=== PATIENT | female | born 1960 | race Caucasian/White ===

== ENCOUNTER 2021-06-19 11:54 | Emergency (ER) | payer MEDICAID ==
[~2021-06-19] VITALS: Ht 165.1 cm; Wt 128.4 kg
[2021-06-19 12:02] VITALS: BP 165/91
[2021-06-19] MEDS ORDERED: KETOROLAC 15 MG/ML VIAL IM ONE (13:20)
[2021-06-19] MEDS ORDERED: ACET-9527 PO (13:48)
--- NOTE | 2021-06-19 15:02 | NUR ---
Patient discharged with v/s stable. Written and verbal after care instructions given and explained. Patient alert, oriented and verbalized understanding of instructions. Wheel Chair Assisted with steady gait. All questions addressed prior to discharge. ID band removed. Patient advised to follow up with PMD. Rx of NORCO given. Patient educated on indication of medication including possible reaction and side effects. Opportunity to ask questions provided and answered.
== END 2021-06-19 15:02 | disposition home or self-care (01) ==
LOC: MED 11:54
DX: M25.561 Pain in right knee (principal); I10 Essential (primary) hypertension; E78.5 Hyperlipidemia, unspecified; Z86.39 Personal history of other endocrine, nutritional and metabolic disease; Z96.653 Presence of artificial knee joint, bilateral; Z79.891 Long term (current) use of opiate analgesic
CPT/HCPCS: 73562; 96372; 99283; J1885; Q0092

== ENCOUNTER 2021-11-23 17:36 | Inpatient (IN) | payer MEDICAID ==
[~2021-11-23] VITALS: Ht 165.1 cm; Wt 140.6 kg
[2021-11-23 17:36] VITALS: BP 148/82
[~2021-11-23 17:36] MED LIST: ACET-9527 PO
--- NOTE | 2021-11-23 17:36 | NUR ---
DR JENKINS EVALUATING PT AT THIS TIME
--- NOTE | 2021-11-23 17:36 | NUR ---
MANE ALS TO ER BED 3
[2021-11-23] MEDS ORDERED: MORPHINE SULFATE 4 MG/ML SYR IVP ONE ×2 (17:45→20:15)
--- NOTE | 2021-11-23 18:19 | NUR ---
Radioloigy at [facility]
--- NOTE | 2021-11-23 18:50 | NUR ---
61 y/o female biba for c/o right shoulder pain x today. Patient states she was transferring form one wheelchair to another and she tripped over the foot rest. Patient fell and landed on shoulder. Patient is noted with a bump and bruising to right eyebrow. Patient also has a laceration to her right inner nose. Patient has difficulty moving her right arm. Patients pain is 7/10. Patient has +sensation, + movement, + feeling. Denies LOC Medical History: HTN, HDL, DM, BIPOLAR, LEFT ARM WEAKNESS ALLERGIES:MORPHINE
--- NOTE | 2021-11-23 18:58 | NUR ---
[facility]
--- NOTE | 2021-11-23 19:10 | NUR ---
Patient returned from imaging
--- NOTE | 2021-11-23 19:25 | NUR ---
Patient report given to NATALIIA Bo. Transfer of care at this time.
--- NOTE | 2021-11-23 19:52 | NUR ---
PATIENT C/O RIGHT SHOULDER PAIN 02/01. MADE AWARE.
[2021-11-23] MEDS ORDERED: ONDANSETRON 4 MG/2 ML VIAL IVP ONE (20:15)
[2021-11-23 20:41] LABS: BASOPHILS % (AUTO) 0.4 % (0.0-2.0); EOSINOPHILS # (AUTO) 0.3 K/uL (0-0.4); EOSINOPHILS % (AUTO) 2.9 % (0.0-4.0); HEMATOCRIT 34.9 % (36-48); HEMOGLOBIN 11.1 g/dL (12.0-16.0); LYMPHOCYTES # (AUTO) 1.8 K/uL (2.5-16.5); LYMPHOCYTES % (AUTO) 15.1 % (20.5-51.1); MEAN CORPUSCULAR HEMOGLOBIN 29 pg (27-31); MEAN CORPUSCULAR HGB CONC 32 g/dL (33-37); MEAN CORPUSCULAR VOLUME 92.3 fL (80-94); MONOCYTES # (AUTO) 0.8 K/uL (0.8-1.0); NEUTROPHILS # (AUTO) 8.7 K/uL (1.8-7.7); NEUTROPHILS % (AUTO) 74.6 % (42.2-75.2); PLATELET COUNT (AUTO) 215 K/uL (140-450); RED BLOOD CELL COUNT(AUTO) 3.79 MIL/uL (4.20-5.40); RED CELL DISTRIBUTION WIDTH 13.9 % (11.6-13.7); WHITE BLOOD COUNT (AUTO) 11.6 K/uL (4.8-10.8)
--- NOTE | 2021-11-23 20:44 | NUR ---
ATTEMPTED TO CALL DAUGHTER ANDREZ BACK [phone], TO UPDATE ON PATIENT STATUS WITH NO SUCCESS X2
[2021-11-23 20:47] LABS: ANION GAP 13.6 (8-16); CARBON DIOXIDE 28.7 mmol/L (21-32); POTASSIUM 4.3 mmol/L (3.5-5.1)
[2021-11-23 20:53] LABS: ALBUMIN 3.1 g/dL (3.4-5.0); TOTAL BILIRUBIN 0.2 mg/dL (0.0-1.0)
[2021-11-23] MEDS ORDERED: ZOLPIDEM 5 MG TAB PO PRN (21:10)
[2021-11-23] MEDS ORDERED: ACETAMINOPHEN 325 MG TAB PO PRN (21:10)
[2021-11-23] MEDS ORDERED: DOCUSATE SODIUM 100 MG GELCAP PO PRN (21:10)
[2021-11-23] MEDS ORDERED: ONDANSETRON 4 MG/2 ML VIAL IM/IVP PRN (21:10)
[2021-11-23] MEDS ORDERED: POTASSIUM CHLORIDE 10 MEQ TABER PO PRN (21:10)
[2021-11-23] MEDS ORDERED: guaiFENesin DM 200/20 MG-10 ML 10 ML UDC PO PRN (21:10)
--- NOTE | 2021-11-23 21:45 | NUR ---
PATIETN UNABLE TO URINATE AT THIS TIME.
[2021-11-23 21:51] LABS: MAGNESIUM 1.8 mg/dL (1.8-2.4); PHOSPHORUS 4.1 mg/dL (2.5-4.9)
--- NOTE | 2021-11-23 22:07 | NUR ---
SPOKE TO PATIENTS DAUGHTER NIKKY AND GAVE UPDATE ON PATIENT STATUS
--- NOTE | 2021-11-23 22:10 | NUR ---
REPORT GIVEN TO BRUNO VILLEGAS. TRANSFER OF CARE.
--- NOTE | 2021-11-23 22:30 | NUR ---
Note mick in ED - 11/24/21 at 0047 by MARIANNE Patient will be admitted to care of SHOULDER PAIN. Admited to SURG. Will go to room 125A. Belongings list completed. Report to BRUNO VILLEGAS.
--- NOTE | 2021-11-23 22:30 | NUR ---
Patient will be admitted to care of MD LISA . Admited to SURG. Will go to room 125A. Belongings list completed. Report to BRUNO VILLEGAS.
--- NOTE | 2021-11-23 23:45 | NUR ---
PATIENT ARRIVED ON UNIT VIA GURNEY FROM ER. RECEIVED REPORT FROM ER NURSE LUCILLE. PATIENT IS DX WITH RIGHT SHOULDER PAIN. PATIENT IS A&O X4. IV SITE IS 22G IN LEFT THUMB. NO FLUIDS RUNNING. PATIENT WAS GIVEN MORPHINE IN ER @ 2038 FOR PAIN. SKIN IS INTACT. VITALS WERE: BP 156/63, HR 61, TEMP 97.5, RR 60, O2 92%. PATIENT DOES HAVE BRUISE ABOVE RIGHT EYE. BED IS IN LOWEST POSITION, WHEELS LOCKED, CALL LIGHT IN PLACE. WILL CONTINUE TO OBSERVE.
--- NOTE | 2021-11-24 03:00 | NUR ---
PATIENT STATED THAT MORPHINE DID NOT HELP WITH PAIN, WHICH IS A 9/10, AND WANTED DOCTOR TO PRESCRIBE SOMETHING STRONGER (REQUESTED DILAUDID). MESSAGED DOCTOR GABO. PENDING RESPONSE.
[2021-11-24] MEDS: HYDROcodone/APAP 10/325 MG 1 TAB TAB PO PRN (03:32)
--- NOTE | 2021-11-24 03:32 | NUR ---
GAVE PATIENT NORCO FOR 9/10 PAIN. PATIENT TOLERATED WELL. WILL CONTINUE TO OBSERVE.
[2021-11-24 04:00] VITALS: BP 149/56
--- NOTE | 2021-11-24 05:00 | NUR ---
PATIENT VOIDED AND NEEDED TO BE CHANGED. PATIENT DECLINED BEING ROLLED DUE TO PAIN. BIOMEDICAL SCIENTISTLizett ELDER AND RNS ALEXIS, MICHAEL, AND BAKARI ASSISTED IN LIFTING PATIENT. PATIENT WAS CLEANED AND CHANGED. PATIENT REQUESTED DILAUDID AGAIN AND WAS INFORMED THAT DOCTOR HAS NOT RESPONDED AND THERE WAS CURRENTLY NO ORDER FOR THE MEDICATION. WILL CONTINUE TO OBSERVE.
[2021-11-24 05:26] LABS: BASOPHILS % (AUTO) 0.3 % (0.0-2.0); EOSINOPHILS # (AUTO) 0.2 K/uL (0-0.4); EOSINOPHILS % (AUTO) 3.3 % (0.0-4.0); HEMATOCRIT 33.3 % (36-48); HEMOGLOBIN 10.8 g/dL (12.0-16.0); LYMPHOCYTES # (AUTO) 1.8 K/uL (2.5-16.5); LYMPHOCYTES % (AUTO) 26.5 % (20.5-51.1); MEAN CORPUSCULAR HEMOGLOBIN 30 pg (27-31); MEAN CORPUSCULAR HGB CONC 33 g/dL (33-37); MONOCYTES # (AUTO) 0.8 K/uL (0.8-1.0); MONOCYTES % (AUTO) 12.1 % (1.7-9.3); NEUTROPHILS # (AUTO) 3.9 K/uL (1.8-7.7); NEUTROPHILS % (AUTO) 57.8 % (42.2-75.2); PLATELET COUNT (AUTO) 192 K/uL (140-450); RED BLOOD CELL COUNT(AUTO) 3.62 MIL/uL (4.20-5.40); RED CELL DISTRIBUTION WIDTH 13.9 % (11.6-13.7); WHITE BLOOD COUNT (AUTO) 6.7 K/uL (4.8-10.8)
[2021-11-24 06:14] LABS: ANION GAP 8.8 (8-16); CARBON DIOXIDE 29.5 mmol/L (21-32); CREATININE 0.8 mg/dL (0.6-1.3); POTASSIUM 4.3 mmol/L (3.5-5.1)
--- NOTE | 2021-11-24 07:30 | NUR ---
ENDORSED CONTINUITY OF CARE TO DAY SHIFT. PATIENT IS STABLE.
--- NOTE | 2021-11-24 07:50 | NUR ---
RECEIVED REPORT FROM INSULATION BOARD CALENDER OPERATOR NURSE FOR CONTINUITY OF CARE. PATIENT ASLEEP NO DISTRESS NOTED. PATIENT RESPIRATION EVEN AND NOT LABORED NO SHORTNESS OF BREATH ON ROOM AIR. IV SITE ON RIGHT THUMB DOMINIC 22 SALINE LOCK. ALL SAFETY MEASURE IN PLACE.
[2021-11-24 08:00] VITALS: BP 140/61
[2021-11-24] MEDS: PANTOPRAZOLE 40 MG TABEC PO SCH (08:57)
--- NOTE | 2021-11-24 08:59 | NUR ---
WHEN I ENTER PATIENT ROM SHE ASLEEP SOUNDLY AND WHEN I CALL HER NAME FIRST THING SHE SAID HURT. GIVEN PROTONIX ORDER. DR. AYON AT BED SIDE THIS TIME.
[2021-11-24] MEDS: HYDROcodone/APAP 5/325 MG 1 TAB TAB PO PRN ×3 (09:09→19:20)
--- NOTE | 2021-11-24 09:10 | NUR ---
MEDICATED FOR PAIN AND SPOON FED BY PADDED PRODUCTS FINISHER.
--- NOTE | 2021-11-24 09:37 | NUR ---
PATIENT HAS BEEN SCREENED AND CATEGORIZED LOW NUTRITION RISK. PATIENT WILL BE SEEN WITHIN 7 DAYS OF ADMISSION. 11/30/[address]
--- NOTE | 2021-11-24 12:00 | NUR ---
PATIENT ALERT REQUESTED TO BE FEED BY PAINT MAKER STATING SHE CAN'T MOVE HER HAND AND ARM BUT PATIENT ABLE TO HOLD AND PUT ON HER EARS TO TALK.
--- NOTE | 2021-11-24 14:28 | NUR ---
PATIENT NOTED WITH REDNESS ON ABDOMINAL FOLD AND GROIN AREA LEFT MESSAGE TO DR. AYON. SORT SUPERVISOR CLEANED PATIENT.
--- NOTE | 2021-11-24 14:30 | NUR ---
PT EVALUATED PATIENT AND SHE IS MAX ASSIST. ALSO COMPLAIN OF PAIN.
[2021-11-24 16:00] VITALS: BP 138/65
[2021-11-24 18:50] LABS: APPEARANCE,URINE SL CLOUDY (CLEAR); BILIRUBIN,URINE NEGATIVE (NEGATIVE); BLOOD, URINE 1+ (NEGATIVE); COLOR,URINE AMBER (YELLOW); LEUKOCYTE ESTERASE ,URINE 3+ (NEGATIVE); NITRITE, URINE POSITIVE (NEGATIVE); UGLUCOSE NEGATIVE (NEGATIVE)
[2021-11-24 19:02] LABS: BARBITURATE, URINE NEGATIVE ng/ml (NEG <=200); BENZODIAZEPINE, URINE NEGATIVE ng/mL (NEG <=200); CANNABINOID, URINE NEGATIVE ng/mL (NEG <=50); COCAINE, URINE NEGATIVE ng/mL (NEG <=300); OPIATE, URINE POSITIVE ng/mL (NEG <=2000); PHENCYCLIDINE SCREEN,URINE NEGATIVE ng/mL (NEG <=25)
[2021-11-24 19:06] LABS: OTHER CASTS, URINE None Seen /LPF (None Seen)
--- NOTE | 2021-11-24 19:20 | NUR ---
PATIENT AWAKE GAVE BED SIDE REPORT TO NAIL PROFESSIONAL NURSE FOR CONTINUITY OF CARE. PATIENT COMPLAIN OF RIGHT SHOULDER PAIN NAIL PROFESSIONAL NURSE WILL GIVE PAIN MEDICATION.
[2021-11-24 20:00] VITALS: BP 136/98
--- NOTE | 2021-11-24 22:00 | NUR ---
INCONTINENT OF URINE, PERINEAL CARE DONE. PUREWICK USED. PULLED UP AND MADE COMFORTABLE IN BED.
[2021-11-24] MEDS: traZODone 50 MG TAB PO SCH (22:45)
--- NOTE | 2021-11-25 00:07 | NUR ---
PATIENT ASLEEP. NO S/SX OF PAIN NOR DISCOMFORT. CALL LIGHT WITHIN REACH.
[2021-11-25 04:00] VITALS: BP 139/55
--- NOTE | 2021-11-25 04:15 | NUR ---
AM CARE RENDERED, PUREWICK CHANGED. GOWN AND LINENS CHANGED. PULLED UP AND POSITIONED FOR COMFORT. CALL LIGHT IN REACH.
[2021-11-25] MEDS: LEVOTHYROXINE 0.112 MG TAB PO SCH (05:34)
[2021-11-25 06:07] LABS: BASOPHILS % (AUTO) 0.2 % (0.0-2.0); EOSINOPHILS # (AUTO) 0.3 K/uL (0-0.4); EOSINOPHILS % (AUTO) 4.3 % (0.0-4.0); HEMATOCRIT 36.5 % (36-48); HEMOGLOBIN 11.8 g/dL (12.0-16.0); LYMPHOCYTES # (AUTO) 1.9 K/uL (2.5-16.5); LYMPHOCYTES % (AUTO) 32.2 % (20.5-51.1); MEAN CORPUSCULAR HEMOGLOBIN 30 pg (27-31); MEAN CORPUSCULAR HGB CONC 32 g/dL (33-37); MEAN CORPUSCULAR VOLUME 92.5 fL (80-94); MONOCYTES # (AUTO) 0.9 K/uL (0.8-1.0); MONOCYTES % (AUTO) 14.2 % (1.7-9.3); NEUTROPHILS % (AUTO) 49.1 % (42.2-75.2); PLATELET COUNT (AUTO) 182 K/uL (140-450); RED BLOOD CELL COUNT(AUTO) 3.95 MIL/uL (4.20-5.40); RED CELL DISTRIBUTION WIDTH 13.7 % (11.6-13.7)
--- NOTE | 2021-11-25 06:09 | NUR ---
PATIENT IS ASLEEP. NO DISTRESS NOTED. SAFETY PRECAUTIONS IN PLACE DURING THE SHIFT, CALL LIGHT REMAINED WITHIN REACH. ALL NEEDS ATTENDED TO.
[2021-11-25 06:21] LABS: ANION GAP 11.9 (8-16); CARBON DIOXIDE 31.2 mmol/L (21-32); POTASSIUM 4.1 mmol/L (3.5-5.1)
[2021-11-25 06:39] LABS: CREATININE 0.9 mg/dL (0.6-1.3)
--- NOTE | 2021-11-25 07:10 | NUR ---
REPORT GIVEN TO AM NURSE. PATIENT IS ASLEEP. NO S/SX OF PAIN NOR DISCOMFORT. CALL LIGHT IN REACH.
--- NOTE | 2021-11-25 07:12 | NUR ---
RECEIVED REPORT FROM LIVESTOCK FARMERS NURSE FOR CONTINUITY OF CARE. PATIENT ASLEEP NO DISTRESS NOTED. RESPIRATION EVEN AND NOT LABORED NO SHORTNESS OF BREATH. ON ROOM AIR. IV SITE OM LEFT THUMB DOMINIC 22 SALINE LOCK. ALL SAFETY MEASURE IN PLACE.
[2021-11-25 08:00] VITALS: BP 176/66
--- NOTE | 2021-11-25 08:00 | NUR ---
Patient's Plan of Care was discussed and reviewed with BACK FILLER OPERATOR: SONU WILL CONTINUE WITH CURRENT POC.
[2021-11-25] MEDS: VENLAFAXINE XR 75 MG CAPER PO SCH (08:57)
[2021-11-25] MEDS: lisinopriL 10 MG TAB PO SCH (08:58)
[2021-11-25] MEDS: PANTOPRAZOLE 40 MG TABEC PO SCH (08:58)
[2021-11-25] MEDS: HYDROcodone/APAP 5/325 MG 1 TAB TAB PO PRN ×3 (09:44→20:19)
--- NOTE | 2021-11-25 09:47 | NUR ---
PATIENT COMPLAIN OF RIGHT SHOULDER PAIN MEDICATED ORDER.
[2021-11-25] MEDS ORDERED: LAM200 PO (10:43)
[2021-11-25] MEDS ORDERED: LEVO0.118 PO (10:43)
[2021-11-25] MEDS ORDERED: TRAZ-466 PO (10:43)
[2021-11-25] MEDS ORDERED: LISI10TA30 PO (10:43)
[2021-11-25] MEDS ORDERED: VENL-151 PO (10:43)
[2021-11-25] MEDS ORDERED: PANT40EC56 PO (10:43)
--- NOTE | 2021-11-25 11:25 | NUR ---
ASSISTED MEDIA LAW FACULTY MEMBER TO DO BED BATH TO PATIENT. PATIENT TOLERATED. ON PURE WICK.
--- NOTE | 2021-11-25 12:00 | NUR ---
CALLED [facility] FOR PATIENT DISCHARGE ORDER GIVING REPORT AND FOR THEIR TRANSPORTATION TO SCIENTIFIC LABORATORY SUPERVISOR PATIENT AND NURSE SAID THAT IF PATIENT CAN DO HER ADL'S ON HER OWN THEN SHE CAN CAME BACK TO ASSISTED LIVING . PATIENT ASSES BY PT AND MAXIMUM ASSIST EVEN WITH EATING PATIENT NEED ASSISTANCE. TRIED TO CALL LEELA QUINTERO TO INFORM THE PATIENT CONDITION.
--- NOTE | 2021-11-25 12:47 | NUR ---
DC PLANN[age] YRS OLD FEMALE PATIENT WAS ADMITTED FROM [facility] WITH A DX OF SHOULDER PAIN. PATIENT HAS A HX OF PREDIABETES BIPOLAR DISORDER AND ARTHRITIS. SHOULDER X-RAY, CERVICAL SPINE CT SHOWED NO FRACTURE AND CT HEAD NEGATIVE. ADMINISTERED NORCO FOR PAIN AND CONTINUED HOME MEDS. PT STABLE FOR DC BACK TO [facility]. [facility] PROVIDE TRANSPORT. CM TO FOLLOW Addendum: 11/25/21 at 1440 by Mimi Riggins RN DC PLANNING: CALLED [facility] [phone] SPOKE WITH ALESSIA STATED THEY ARE UNABLE TO TAKE CARE OF HER, THEY ARE NON MEDICAL STAFF NEEDS MORE THERAPY. PER PHYSICAL THERAPY'S RECOMMENDATION, SNF PLACEMENT. CALLED PT'S DAUGHTER [phone] SPOKE WITH LIST EXPLAINED THE NEED FOR PHYSICAL THERAPY TO SNF. SUZANNE AGREED. CALLED [facility] SPOKE WITH CATHERINE NOTIFIED HER THE REQUEST OK TO SEND TO CONTRACTED FACILITY [facility] [place]. CM TO FOLLOW Addendum: 11/25/21 at 1623 by Mimi Riggins RN DC PLANNING: CALLED [facility] SPOKE WITH CATHERINE NOTIFIED HER PATIENT IS ACCEPTED AT [facility] CAN GO TO ROOM 38B. CATHERINE PROVIDE THE AUTH # [id number] CALLED [facility]S SPOKE WITH SARA STATED NO BARIATRIC TRANSPORT IS AVAILABLE FOR TODAY, CALLED [facility] THE [facility] STATED NO LONGER HAVING TRANSPORT SERVICE. CALLED [facility] SPOKE WITH DANICA STATED NO BARIATRIC TRANSPORT AVAILABLE FOR TODAY CAN STRATEGIC SOURCING MANAGER TOMORROW MORNING. NOTIFIED [facility] ARRANGED TRANSPORT WITH [facility] AND STRATEGIC SOURCING MANAGER TIME 11/26/21 AT 1100AM. CM TO FOLLOW
--- NOTE | 2021-11-25 15:48 | NUR ---
PATIENT WITH DAUGHTER AT BED SIDE COMPLAIN OF SHOULDER PAIN MEDICATED ORDER.
--- NOTE | 2021-11-25 15:49 | NUR ---
PHYSICAL THERAPY CO-SIGN The Physical Therapy Progress Notes documented by Geothermal Installer have been reviewed. Reviewed/Co-Signed by: Reshma Gilmore Documentation Done by: EMMA MENA PTA Addendum: 11/25/21 at 1550 by Reshma Gilmore PT Amended: Links added.
[2021-11-25 16:00] VITALS: BP 125/65
--- NOTE | 2021-11-25 16:26 | NUR ---
SEWING MACHINE OPERATOR FLOORPERSON CALLED THAT TRANSFER [place] [facility] [place] UNABLE TO FIND TRANSPORTATION AT THIS TIME. INFORM PATIENT.
--- NOTE | 2021-11-25 17:27 | NUR ---
GIVEN HER LAMICTAL TOLERATED WELL.
--- NOTE | 2021-11-25 19:37 | NUR ---
GAVE REPORT TO COMPANY MARKER NURSE FOR CONTINUITY OF CARE.
--- NOTE | 2021-11-25 19:38 | NUR ---
RECD. RESTING IN BED, AWAKE, A/OX4. WATCHING TV. RESPIRATION EVEN AND UNLABORED. IV SALINE LOCK AT THE LEFT THUMB G22, PATENT AND INTACT. NOTED BRUISING AROUND RIGHT EYE AND TWO TINY ABRASION ON THE RIGHT SIDE OF NOSE DUE TO FALL. COMPLAINED OF RIGHT SHOULDER PAIN 6/. WILL MEDICATE PER MD ORDER.
[2021-11-25] MEDS: traZODone 50 MG TAB PO SCH (20:20)
--- NOTE | 2021-11-25 20:20 | NUR ---
WATCHING TV. SCHEDULED MEDICATIONS ADMINISTERED.
--- NOTE | 2021-11-25 22:00 | NUR ---
WITH PUR WICK, EMPTIED CANISTER AND PUT ON A NEW ONE.
--- NOTE | 2021-11-25 23:00 | NUR ---
IV SALINE LOCK GOT ACCIDENTALLY PULLED OUT. PATIENT REFUSED NEW IV INSERTION, VERBALIZED SHE WILL BE GOING HOME TOMORROW AND SHE DOES NOT WANT TO HAVE A NEW IV LINE.
[2021-11-26 00:24] VITALS: BP 125/65
--- NOTE | 2021-11-26 01:00 | NUR ---
SLEEPING COMFORTABLY IN BED, RESPIRATION EVEN AND UNLABORED. CALL LIGHT IN REACH.
--- NOTE | 2021-11-26 03:00 | NUR ---
CALL NURSE, FRESH ICY WATER GIVEN REQUESTED.
--- NOTE | 2021-11-26 05:00 | NUR ---
VERBALIZED SHE WAS ABLE TO SLEEP WELL. NO COMPLAINT OF PAIN DURING THE SHIFT..
[2021-11-26 05:52] LABS: BASOPHILS % (AUTO) 0.3 % (0.0-2.0); EOSINOPHILS # (AUTO) 0.3 K/uL (0-0.4); EOSINOPHILS % (AUTO) 5.1 % (0.0-4.0); HEMATOCRIT 36.5 % (36-48); HEMOGLOBIN 11.8 g/dL (12.0-16.0); LYMPHOCYTES % (AUTO) 30.4 % (20.5-51.1); MEAN CORPUSCULAR HEMOGLOBIN 30 pg (27-31); MEAN CORPUSCULAR HGB CONC 32 g/dL (33-37); MONOCYTES # (AUTO) 0.9 K/uL (0.8-1.0); MONOCYTES % (AUTO) 14.3 % (1.7-9.3); NEUTROPHILS # (AUTO) 3.3 K/uL (1.8-7.7); NEUTROPHILS % (AUTO) 49.9 % (42.2-75.2); PLATELET COUNT (AUTO) 178 K/uL (140-450); RED BLOOD CELL COUNT(AUTO) 3.97 MIL/uL (4.20-5.40); RED CELL DISTRIBUTION WIDTH 14.3 % (11.6-13.7); WHITE BLOOD COUNT (AUTO) 6.5 K/uL (4.8-10.8)
[2021-11-26 06:03] LABS: ANION GAP 10.7 (8-16); CARBON DIOXIDE 31.3 mmol/L (21-32); CREATININE 0.9 mg/dL (0.6-1.3)
[2021-11-26] MEDS: LEVOTHYROXINE 0.112 MG TAB PO SCH (06:17)
--- NOTE | 2021-11-26 07:00 | NUR ---
CONDITION REMAIN STABLE. ALL NEEDS ATTENDED. WILL ENDORSED TO AM SHIFT NURSE FOR CONTINUITY OF CARE.
--- NOTE | 2021-11-26 07:25 | NUR ---
RECEIVED ENDORSEMENT FROM RELATIONSHIP ADVISOR NURSE FOR CONTINUITY OF CARE. PATIENT AWAKE VERBALLY RESPONSIVE. NO DISTRESS NOTED. RESPIRATION EVEN AND NOT LABORED NO SHORTNESS OF BREATH. ON ROOM AIR . NO IV SITE ACCIDENTALLY REMOVED LAST NIGHT AND PATIENT REFUSED TO PUT IT BACK. ALL SAFETY MEASURE IN PLACE. REPOSITION PATIENT.
--- NOTE | 2021-11-26 08:40 | NUR ---
RECEIVED MESSAGE FROM PATIENT ADMITTING REPRESENTATIVE THAT PATIENT WILL BE RACING MANAGER AT 9AM AND TO GIVE ALL HER MEDICATION AND GIVE REPORT TO [facility].
--- NOTE | 2021-11-26 08:50 | NUR ---
PATIENT STILL BEING FEED BY VACUUM BOTTLE ASSEMBLER HER BREAKFAST.GIVEN ALL HER MEDICATION AND GIVEN NORCO 10/325 MG FOR COMPLAIN OF RIGHT SHOULDER PAIN. ALSO INFORM HER THAT [place] GO[place] [facility] [place] PATIENT UNABLE TO SIGN THE DISCHARGE PAPER BUT VERBALIZED UNDERSTANDING.
[2021-11-26] MEDS: lisinopriL 10 MG TAB PO SCH (08:56)
[2021-11-26] MEDS: PANTOPRAZOLE 40 MG TABEC PO SCH (08:57)
[2021-11-26] MEDS: HYDROcodone/APAP 10/325 MG 1 TAB TAB PO PRN (08:57)
[2021-11-26] MEDS: VENLAFAXINE XR 75 MG CAPER PO SCH (08:57)
--- NOTE | 2021-11-26 09:05 | NUR ---
GAVE REPORT TO NURSE ELOY NG FOR CONTINUITY OF CARE.
--- NOTE | 2021-11-26 09:18 | NUR ---
NAME BAND REMOVED. PATIENT ALERT ORIENTED LEFT THE UNIT ON A GURNEY ASSISTED BY 3 TRANSPORTATION STAFF. ALL HER BELONGING TAKEN WITH DISCHARGE PACKET.
--- NOTE | 2021-11-26 09:23 | NUR ---
CALLED DAUGHTER ANDREZ AT [phone] LEFT MESSAGE REGARDING THE TRANSFER OF THE PATIENT.
--- NOTE | 2021-11-26 09:51 | NUR ---
NOTED THAT PATIENT HAS CONSULT WITH DR. CARIAS DUE TO HER FRACTURE LEFT MESSAGE TO DR. YU.
--- NOTE | 2021-11-26 12:14 | NUR ---
PHYSICAL THERAPY CO-SIGN The Physical Therapy Progress Notes documented by Seedling Puller have been reviewed. Reviewed/Co-Signed by: Reshma Gilmore Documentation Done by: EMMA MENA PTA Addendum: 11/26/21 at 1214 by Reshma Gilmore PT Amended: Links added.
== END 2021-11-26 09:20 | DRG 342 ==
LOC: MED 17:36 → MMU 21:11
PROVIDERS: ADMIT Student in an Organized Health Care Education/Training Program; ATTEND Student in an Organized Health Care Education/Training Program
DX: S42.91XA Fracture of right shoulder girdle, part unspecified, initial encounter for closed fracture (principal); E44.1 Mild protein-calorie malnutrition; E03.9 Hypothyroidism, unspecified; E78.5 Hyperlipidemia, unspecified; I10 Essential (primary) hypertension; F31.9 Bipolar disorder, unspecified; M79.7 Fibromyalgia; S01.21XA Laceration without foreign body of nose, initial encounter; W18.39XA Other fall on same level, initial encounter; Z20.822 Contact with and (suspected) exposure to COVID-19; R73.03 Prediabetes; Z79.891 Long term (current) use of opiate analgesic; Z79.899 Other long term (current) drug therapy; Z83.3 Family history of diabetes mellitus; Z80.8 Family history of malignant neoplasm of other organs or systems; Y93.89 Activity, other specified; Y92.89 Other specified places as the place of occurrence of the external cause; Y99.8 Other external cause status
CPT/HCPCS: 36415; 70450; 72125; 73030; 73200; 80048; 80053; 80305; 81001; 82150; 83690; 83735; 84100; 85025; 87081; 87086; 96374; 96375; 97110; 97163-GP; 97530; 99285; J2270; J2405